=== PATIENT | female | born 1985 | race Native Hawaiian/Other Pacific Islander ===

== ENCOUNTER 2016-11-04 16:05 | Observation (INO) | payer BC, MEDICAID ==
[~2016-11-04] VITALS: Ht 160 cm; Wt 90.3 kg
[2016-11-04 17:00] VITALS: BP 118/70
== END 2016-11-04 18:10 | disposition home or self-care (01) ==
LOC: MLD 16:05
PROVIDERS: ADMIT Obstetrics & Gynecology; ATTEND Obstetrics & Gynecology
DX: O26.892 Other specified pregnancy related conditions, second trimester (principal); R10.9 Unspecified abdominal pain; Z3A.21 21 weeks gestation of pregnancy
CPT/HCPCS: 76805; G0378; Q0092

== ENCOUNTER 2016-11-29 07:57 | Outpatient (CLI) | payer BC, MEDICAID ==
[2016-11-29 08:41] LABS: BASOPHILS % (AUTO) 0.3 % (0.0-2.0); EOSINOPHILS # (AUTO) 0.4 K/uL (0-0.4); EOSINOPHILS % (AUTO) 3.5 % (0.0-4.0); HEMATOCRIT 35.3 % (36-48); HEMOGLOBIN 11.4 g/dL (12.0-16.0); LYMPHOCYTES # (AUTO) 1.9 K/uL (2.5-16.5); LYMPHOCYTES % (AUTO) 17.6 % (20.5-51.1); MEAN CORPUSCULAR HEMOGLOBIN 27 pg (27-31); MEAN CORPUSCULAR HGB CONC 32 g/dL (33-37); MEAN CORPUSCULAR VOLUME 84 fL (80-94); MONOCYTES # (AUTO) 0.7 K/uL (0.8-1.0); MONOCYTES % (AUTO) 6.1 % (1.7-9.3); NEUTROPHILS # (AUTO) 7.9 K/uL (1.8-7.7); NEUTROPHILS % (AUTO) 72.5 % (42.2-75.2); PLATELET COUNT (AUTO) 273 K/uL (140-450); RED BLOOD CELL COUNT(AUTO) 4.23 MIL/uL (4.20-5.40); RED CELL DISTRIBUTION WIDTH 12.9 % (11.6-13.7); WHITE BLOOD COUNT (AUTO) 10.9 K/uL (4.8-10.8)
[2016-11-29 09:27] LABS: GLUCOSE FASTING 99 mg/dL (83-110)
[2016-11-29 11:48] LABS: GLUCOSE,FASTING GESTATIONAL 99 mg/dL (70-110)
== END 2016-11-29 20:43 | disposition home or self-care (01) ==
LOC: MLB 07:57
PROVIDERS: ATTEND Obstetrics & Gynecology
DX: Z33.1 Pregnant state, incidental (principal)
CPT/HCPCS: 36415; 82947; 82951; 85025

== ENCOUNTER 2017-01-04 21:04 | Inpatient (IN) | payer BC, MEDICAID ==
[~2017-01-04] VITALS: Ht 160 cm; Wt 93.6 kg
[2017-01-04 18:59] VITALS: BP 119/81
[2017-01-04] MEDS: TERBUTALINE 1 MG/ML VIAL SUBQ SCH ×2 (19:45→20:25)
[2017-01-04 20:22] LABS: BASOPHILS # (AUTO) 0.2 K/uL (0.00-0.22); BASOPHILS % (AUTO) 1.5 % (0.0-2.0); EOSINOPHILS # (AUTO) 0.4 K/uL (0-0.4); EOSINOPHILS % (AUTO) 2.9 % (0.0-4.0); HEMATOCRIT 35.9 % (36-48); HEMOGLOBIN 11.9 g/dL (12.0-16.0); LYMPHOCYTES # (AUTO) 2.5 K/uL (2.5-16.5); LYMPHOCYTES % (AUTO) 19.6 % (20.5-51.1); MEAN CORPUSCULAR HEMOGLOBIN 27 pg (27-31); MEAN CORPUSCULAR HGB CONC 33 g/dL (33-37); MEAN CORPUSCULAR VOLUME 82 fL (80-94); MONOCYTES # (AUTO) 0.9 K/uL (0.8-1.0); MONOCYTES % (AUTO) 6.9 % (1.7-9.3); NEUTROPHILS # (AUTO) 8.8 K/uL (1.8-7.7); NEUTROPHILS % (AUTO) 69.1 % (42.2-75.2); PLATELET COUNT (AUTO) 260 K/uL (140-450); RED BLOOD CELL COUNT(AUTO) 4.39 MIL/uL (4.20-5.40); RED CELL DISTRIBUTION WIDTH 13.2 % (11.6-13.7); WHITE BLOOD COUNT (AUTO) 12.8 K/uL (4.8-10.8)
[2017-01-04 20:37] LABS: ALBUMIN 2.9 g/dL (3.4-5.0); ANION GAP 14.7 (8-16); CARBON DIOXIDE 21.1 mmol/L (21-32); CREATININE 0.6 mg/dL (0.6-1.3); TOTAL BILIRUBIN 0.2 mg/dL (0.0-1.0)
[2017-01-04 20:38] LABS: POTASSIUM 2.8 mmol/L (3.5-5.1)
[~2017-01-04 21:04] MED LIST: NITR100C7 PO; ONDANSETRON 4 MG/2 ML VIAL IVP PRN; ONDANSETRON 4 MG/2 ML VIAL ONE; PREN-380 PO; TERBUTALINE 1 MG/ML VIAL SUBQ ONE
--- NOTE | 2017-01-04 21:04 | NUR ---
2100- PT TAKEN TO BED 7
--- NOTE | 2017-01-04 21:05 | NUR ---
31Y F BIB FAMILY FROM L&D AFTER PT HAS BEEN CLEARED. PT STATES SHE HAS BEEN HAVING N/V NO DIARRHEA AND DIZZINESS WITH CP OCCURRED WHILE AT L&D TODAY. PT STATES CP IS NON RADIATING SUBSTERNAL FEELS LIKE PRESSURE. EKG HAS BEEN DONE. L&D ESTABLISHED IV 20G TO LEFT HAND AND DELIVERED 1L NACL 0.9 BOLUS WITH IVP ZOFRAN 4MG.
--- NOTE | 2017-01-04 21:05 | NUR ---
CRITICAL LAB K 2.8. ENDORSED FROM L&D NURSE. ER MD DR CHENEY AWARE
[2017-01-04 21:09] VITALS: BP 116/67
--- NOTE | 2017-01-04 21:18 | NUR ---
Dr. Borjas evaluating patient at bedside.
[2017-01-04] MEDS ORDERED: POTASSIUM CHLORIDE 20% 40 MEQ/15 ML UDC PO ONE (21:25)
--- NOTE | 2017-01-04 21:47 | NUR ---
Ultrasound at bedside.
[2017-01-04 21:59] LABS: PROTHROMBIN TIME 9.5 secs (10.8-13.4)
[2017-01-04] MEDS ORDERED: HYDROcodone/APAP 5/325 MG 1 TAB TAB PO PRN (23:30)
--- NOTE | 2017-01-04 23:37 | NUR ---
Patient will be admitted to care of DR ANDREWS. Admited to TELE 111B. Will go to room 111B. Belongings list completed. Report to STEVENSON JORDAN .
--- NOTE | 2017-01-04 23:53 | NUR ---
RECEIVED FROM ER PER DIAZ PT. AWAKE AND ALERT ACCOMPANIED BY SPOUSE. NO COMPLAINTS OF ANY PAIN AT THIS TIME. CALL LIGHT WITH IN REACH AND CARE PLANS FOR THE NIGHT DISCUSSED WITH THEM. ORIENTED TO CALL LIGHT USE, AND SURROUNDINGS. SKIN INTACT. OBESE FEMALE PT. a/o x 4. LH#20 IVF SITE INTACT AND NO INFILTRATION . AFEBRILE. TELEMETRY MONITORING. DX. OF CHEST PAIN . COMPLAINED OF SOB AND CHEST PRESSURE PRIOR ADMISSION TO ER.
[2017-01-05 00:15] VITALS: BP 118/75
--- NOTE | 2017-01-05 02:00 | NUR ---
PT. SLEEPING AT THIS TIME. TELEMETRY MONITORING. SPOUSE AT BEDSIDE WATCHING OVER HER . NO COMPLAINTS DONE.
[2017-01-05] MEDS: LACTATED RINGERS 1,000 ML IV SCH ×3 (03:05→19:24)
[2017-01-05 04:00] VITALS: BP 98/58
--- NOTE | 2017-01-05 04:14 | NUR ---
PT. AWAKE AT THIS TIME. SPOUSE ASSISTED PT. TO RESTROOM INSIDE ROOM. NO UNTOWARD INCIDENT. BILATERAL SEQUENTIALS IN PLACE. CALL LIGHT WITH IN REACH. TELEMETRY MONITORING. IVF SITE TO LEFT HAND INTACT AND NO INFILTRATION.
[2017-01-05 06:16] LABS: BASOPHILS # (AUTO) 0.1 K/uL (0.00-0.22); BASOPHILS % (AUTO) 0.5 % (0.0-2.0); EOSINOPHILS # (AUTO) 0.2 K/uL (0-0.4); EOSINOPHILS % (AUTO) 1.5 % (0.0-4.0); HEMATOCRIT 32.5 % (36-48); HEMOGLOBIN 10.5 g/dL (12.0-16.0); LYMPHOCYTES # (AUTO) 1.8 K/uL (2.5-16.5); MEAN CORPUSCULAR HEMOGLOBIN 26 pg (27-31); MEAN CORPUSCULAR HGB CONC 32 g/dL (33-37); MEAN CORPUSCULAR VOLUME 82 fL (80-94); MONOCYTES # (AUTO) 0.8 K/uL (0.8-1.0); MONOCYTES % (AUTO) 6.2 % (1.7-9.3); NEUTROPHILS % (AUTO) 77.8 % (42.2-75.2); PLATELET COUNT (AUTO) 250 K/uL (140-450); RED BLOOD CELL COUNT(AUTO) 3.96 MIL/uL (4.20-5.40); RED CELL DISTRIBUTION WIDTH 13.1 % (11.6-13.7); WHITE BLOOD COUNT (AUTO) 12.9 K/uL (4.8-10.8)
--- NOTE | 2017-01-05 07:02 | NUR ---
PT. AWAKE AND EATING JELLO. NO COMPLAINTS DONE. TELEMETRY MONITORING. NO NAUSEA OR VOMITING THIS SHIFT.
--- NOTE | 2017-01-05 07:25 | NUR ---
RECEIVED REPORT FROM DESIGNATED BROKER NURSE, PT IS SLEEPING IN BED BUT EASILY AWAKEN, PT IS A/OX4, AMBULATORY, IV IS ON THE LEFT HAND, PATENT, INTACT, FLUSHING WELL, PATIENT IS 30 WEEKS , SKIN IS INTACT, NO S/S OF RESPIRATORY DISTRESS OR DISCOMFORT NOTED, DISCUSSED PLAN OF CARE WITH PT, PT VERBALIZED UNDERSTANDING, IS AT PATIENT'S BEDSIDE, SAFETY/FALL PRECAUTIONS ARE IN PLACE, CALL LIGHT IS WITHIN REACH, WILL CONTINUE TO MONITOR.
[2017-01-05 08:00] VITALS: BP 101/61
--- NOTE | 2017-01-05 08:25 | NUR ---
LABOR AND DELIVERY NURSE AT PT BEDSIDE, CHECKING HEART RATE, FHR IS AT 144.
[2017-01-05] MEDS ORDERED: NON-FORMULARY ITEM (Prenatal Vit/Iron Fumarate/FA (Prenatal Tablet) 1 TAB) PO SCH (09:00)
[2017-01-05] MEDS: MULTIVIT/MIN/CA/FE/FA 1 TAB PO SCH (09:00)
--- NOTE | 2017-01-05 09:09 | NUR ---
PATIENT REFUSED TO TAKE PRE BONG VITAMIN AT THIS TIME, PT STATED SHE WILL VOMIT IF SHE TAKES THE PILL. PT DOES NOT WANT THE ZOFRAN AT THIS TIME, SHE STATED THAT MEDICATION GAVE HER SHORTNESS OF BREATH AND PRESSURE IN HER CHEST.
[2017-01-05 10:17] LABS: ANION GAP 13.2 (8-16); CARBON DIOXIDE 20.4 mmol/L (21-32); CREATININE 0.5 mg/dL (0.6-1.3); POTASSIUM 3.6 mmol/L (3.5-5.1)
--- NOTE | 2017-01-05 10:27 | NUR ---
RECEIVED PHONE CALL FROM DR. MALIK, PER DR. MALIK HE WILL BE IN TO SEE PT TOMORROW. ORDER FOLIC ACID, VIT B12 AND IRON.
--- NOTE | 2017-01-05 12:51 | NUR ---
PT REFUSED TO HAVE CHEST XRAY STUDY DONE.
[2017-01-05] MEDS ORDERED: ONDANSETRON 4 MG/2 ML VIAL IVP PRN (13:00)
--- NOTE | 2017-01-05 14:45 | NUR ---
PATIENT IS RESTING IN BED, NO S/S OF RESPIRATORY DISTRESS OR DISCOMFORT NOTED, CALL LIGHT WITHIN REACH.
[2017-01-05 15:02] VITALS: BP 95/49
--- NOTE | 2017-01-05 17:30 | NUR ---
PATIENT REFUSED CT-SCAN OF THE HEAD D/T 30 WEEK .
[2017-01-05] MEDS: cefTRIAXone 2,000 MG in DEXTROSE 5% 100 ML IV SCH (17:46)
--- NOTE | 2017-01-05 18:45 | NUR ---
PATIENT TAKING A SHOWER AT THIS TIME.
--- NOTE | 2017-01-05 19:25 | NUR ---
ENDORSED PT TO HOLLOCK MAKER NURSE FOR CONTINUITY OF CARE, PT STABLE AT THIS TIME.
--- NOTE | 2017-01-05 19:30 | NUR ---
RECEIVED REPORTS FROM DAY RN, PATIENT RESTING IN BED, AWAKE ALERT ORIENTED X4, FAMILY AT BEDSIDE. NO S/S OF ACUTE DISTRESS NOTED, RESPIRATION EVEN AND UNLABORED, IV INTACT AND PATENT, INFUSING LR AT 125ML/HR. PLAN OF CARE DISCUSSED, VERBALIZED UNDERSTANDING, CALL LIGHT WITHIN REACH, SAFETY MEASURE ENSURED, WILL CONTINUE TO MONITOR.
[2017-01-05 20:00] VITALS: BP 101/62
--- NOTE | 2017-01-05 20:28 | NUR ---
L&D NURSE CAME AND CHECKED THE PATIENT, REPORTED HEART RATE 142.
--- NOTE | 2017-01-05 22:20 | NUR ---
PATIENT RESTING IN BED, FAMILY MEMBERS AT BEDSIDE. NO S/S OF ACUTE DISTRESS NOTED, RESPIRATION EVEN AND UNLABORED, CALL LIGHT WITHIN REACH, SAFETY MEASURE ENSURED, WILL CONTINUE TO MONITOR.
[2017-01-06] VITALS: BP 99/49
--- NOTE | 2017-01-06 | NUR ---
STARTED A NEW BAG OF 1L LACTATED RINGER, PATIENT TOLERATED WELL. NO S/S OF ACUTE DISTRESS NOTED, RESPIRATION EVEN AND UNLABORED, CALL LIGHT WITHIN REACH, SAFETY MEASURE ENSURED, WILL CONTINUE TO MONITOR.
--- NOTE | 2017-01-06 02:39 | NUR ---
PATIENT ASLEEP IN BED, NO S/S OF ACUTE DISTRESS NOTED, RESPIRATION EVEN AND UNLABORED, WILL CONTINUE TO MONITOR.
[2017-01-06 04:00] VITALS: BP 100/62
--- NOTE | 2017-01-06 04:34 | NUR ---
PATIENT IS SLEEPING AT THIS TIME, NO S/S OF ACUTE DISTRESS NOTED, RESPIRATION EVEN AND UNLABORED, CALL LIGHT WITHIN REACH, SAFETY MEASURE ENSURED, WILL CONTINUE TO MONITOR.
[2017-01-06 05:56] LABS: BASOPHILS # (AUTO) 0.1 K/uL (0.00-0.22); BASOPHILS % (AUTO) 1.6 % (0.0-2.0); EOSINOPHILS # (AUTO) 0.4 K/uL (0-0.4); EOSINOPHILS % (AUTO) 3.9 % (0.0-4.0); HEMATOCRIT 31.4 % (36-48); HEMOGLOBIN 10.4 g/dL (12.0-16.0); LYMPHOCYTES # (AUTO) 2.3 K/uL (2.5-16.5); MEAN CORPUSCULAR HEMOGLOBIN 27 pg (27-31); MEAN CORPUSCULAR HGB CONC 33 g/dL (33-37); MEAN CORPUSCULAR VOLUME 82 fL (80-94); MONOCYTES # (AUTO) 0.5 K/uL (0.8-1.0); MONOCYTES % (AUTO) 5.6 % (1.7-9.3); NEUTROPHILS # (AUTO) 5.8 K/uL (1.8-7.7); NEUTROPHILS % (AUTO) 63.9 % (42.2-75.2); PLATELET COUNT (AUTO) 274 K/uL (140-450); RED BLOOD CELL COUNT(AUTO) 3.85 MIL/uL (4.20-5.40); RED CELL DISTRIBUTION WIDTH 13.3 % (11.6-13.7); WHITE BLOOD COUNT (AUTO) 9.1 K/uL (4.8-10.8)
--- NOTE | 2017-01-06 06:15 | NUR ---
PATIENT IS SLEEPING AT THIS TIME. RESPIRATION EVEN AND UNLABORED, NO S/S OF ACUTE DISTRESS NOTED, CALL LIGHT WITHIN REACH, SAFETY MEASURE ENSURED, WILL CONTINUE TO MONITOR.
[2017-01-06 06:23] LABS: ANION GAP 11.7 (8-16); CARBON DIOXIDE 22.7 mmol/L (21-32); CREATININE 0.4 mg/dL (0.6-1.3); POTASSIUM 3.4 mmol/L (3.5-5.1)
[2017-01-06] MEDS: ACETAMINOPHEN 325 MG TAB PO PRN ×2 (06:36→17:04)
--- NOTE | 2017-01-06 06:41 | NUR ---
PATIENT REPORTED LOWER ABDOMEN PRESSURE LIKE PAIN 07/05, AND STATED," WHEN THE PERSON WAS DRAWING BLOOD, I STARTED TO FEEL DIZZY." VITAL SIGNS TAKEN, READ T 98.3, BP 114/70, HR 89, RR 19, O2 SAT 96%, PAIN MEDICATION GIVEN ORDERED. WILL CONTINUE TO MONITOR.
--- NOTE | 2017-01-06 07:26 | NUR ---
ENDORSED PLAN OF CARE TO DAY RN, PATIENT RESTING IN BED, NO S/S OF ACUTE DISTRESS NOTED, RESPIRATION EVEN AND UNLABORED.
--- NOTE | 2017-01-06 07:30 | NUR ---
RECEIVED PATIENT AT BEDSIDE FROM NIGHT NURSE. PATIENT IS AAOX4 AND SHOWS NO S/S OF ACUTE DISTRESS ON ROOM AIR. PATIENT SKIN IS INTACT. PATIENT IV NOTED ON THE L H WITH IVF'S INFUSING WELL. ON TELE MONITOR. PATIENT DENIES PAIN. PATIENT WAS EXPLAINED POC FOR TODAY AND VERBALIZED UNDERSTANDING. PATIENT IS AWARE TO USE CALL LIGHT WHEN ASSISTANCE IS NEEDED. THE BED IS IN LOW POSITION AND CALL LIGHT WITHIN REACH. WILL CONTINUE TO MONITOR.
[2017-01-06 08:00] VITALS: BP 132/77
--- NOTE | 2017-01-06 08:15 | NUR ---
PAGED DR ANDREWS REGARDING PATIENT'S POTASSIUM OF 3.4. WILL AWAIT CALL BACK.
--- NOTE | 2017-01-06 09:12 | NUR ---
PATIENT HAS BEEN SCREENED AND CATEGORIZED HIGH NUTRITION RISK. PATIENT WILL BE SEEN WITHIN 1-2 DAYS OF ADMISSION. 01/05/17-01/06/[address]
[2017-01-06 09:34] LABS: CREATINE KINASE MB 0.1 ng/mL (0-3.6)
[2017-01-06] MEDS: FOLIC ACID 1 MG TAB PO SCH (09:50)
[2017-01-06] MEDS: FERROUS GLUCONATE 324 MG TAB PO SCH ×2 (09:50→17:04)
--- NOTE | 2017-01-06 09:50 | NUR ---
ADMINISTERED SCHEDULED MEDICATIONS. PATIENT C/O NAUSEA. ADMINISTERED ZOFRAN 4 MG IVP. PATIENT DENIES PAIN. PATIENT HAS FAMILY AT BEDSIDE. WILL CONTINUE TO MONITOR.
[2017-01-06] MEDS: MULTIVIT/MIN/CA/FE/FA 1 TAB PO SCH (09:51)
[2017-01-06] MEDS: CYANOCOBALAMIN 100 MCG TAB PO SCH (09:51)
[2017-01-06] MEDS: ONDANSETRON 4 MG/2 ML VIAL IVP PRN (09:52)
[2017-01-06] MEDS: LACTATED RINGERS 1,000 ML IV SCH ×3 (09:58→21:35)
--- NOTE | 2017-01-06 10:30 | NUR ---
PAGED DR. ANDREWS REGARDING PATIENT POTASSIUM OF 3.4. WILL AWAIT CALL BACK.
[2017-01-06 12:00] VITALS: BP 103/67
--- NOTE | 2017-01-06 12:20 | NUR ---
PATIENT HAS FAMILY AT BEDSIDE AND SHOWS NO S/S OF ACUTE DISTRESS ON ROOM AIR. PATIENT DENIES PAIN AND N/V. PATIENT IS SITTING ON CHAIR EATING LUNCH HOWEVER, WOULD LIKE ANOTHER LUNCH TRAY BC SHE DOES NOT LIKE THE FOOD. WILL CALL [facility].
--- NOTE | 2017-01-06 13:00 | NUR ---
[facility] CAME AND GAVE PATIENT CHICKEN [employer] SANDWICH. PATIENT SHOWS NO S/S OF ACUTE DISTRESS ON ROOM AIR. FAMILY AT BEDSIDE.
[2017-01-06] MEDS ORDERED: POTASSIUM CHLORIDE 10 MEQ TABER PO SCH (13:05)
--- NOTE | 2017-01-06 13:40 | NUR ---
CM NOTE INITIAL REVIEW FAXED TO NILDA LUNA [phone] , REF# [id number]
--- NOTE | 2017-01-06 13:57 | NUR ---
RECEIVED FAX FROM [facility] [employer] STATING THE NURSE ASSIGNED IS STELLA MARTINEZ PH [phone] X [phone], FAX [phone]. INITIAL REVIEW FAXED TO [facility] FAX [phone], STELLA MARTINEZ PH [phone] X [phone]
--- NOTE | 2017-01-06 14:50 | NUR ---
PATIENT WAS SEEN BY DR ANDREWS. PATIENT AWARE SHE WILL STAY TONIGHT AND HAVE AM LABS. PATIENT IS NOW RESTING AND SHOWS NO S/S OF ACUTE DISTRESS ON ROOM AIR. THE BED IS LOWERED WITH CALL LIGHT WITHIN REACH.
--- NOTE | 2017-01-06 15:07 | NUR ---
01/06/17 RD INITIAL ASSESSMENT COMPLETED PLEASE REFER TO NUTRITION ASSESSMENT UNDER CARE ACTIVITY FOR ESTIMATED NUTRITIONAL NEEDS. 1. CONTINUE CARDIAC DIET 2. BOOST BREEZE TID 3. RD TO FOLLOW UP WITHIN 2-3 DAYS; HIGH RISK VENICE HAMEED RD
--- NOTE | 2017-01-06 15:33 | NUR ---
PATIENT IS SLEEPING IN BED AND DENIES PAIN. THE BED IS LOWERED WITH CALL LIGHT WITHIN REACH.
--- NOTE | 2017-01-06 15:35 | NUR ---
CHART REVIEWED. NO POST ACUTE CARE NEEDS IDENTIFIED.
[2017-01-06 16:00] VITALS: BP 99/57
[2017-01-06] MEDS: cefTRIAXone 2,000 MG in DEXTROSE 5% 100 ML IV SCH (17:03)
--- NOTE | 2017-01-06 17:04 | NUR ---
PATIENT C/O HEADACHE 07/05 ADMINISTERED TYLENOL 650 MG PO. ADMINISTERED SCHEDULED MEDICATIONS WELL. PATIENT BED IS IN LOW POSITION WITH CALL LIGHT WITHIN REACH. WILL CONTINUE TO MONITOR.
--- NOTE | 2017-01-06 18:04 | NUR ---
PATIENT DENIES PAIN OR HEADACHE. PATIENT STATED IV WAS HURTING HER. WILL DISCONTINUE AND PLACE NEW IV.
--- NOTE | 2017-01-06 19:06 | NUR ---
UNABLE TO GET NEW IV. PATIENT REPORT WAS GIVEN AT BEDSIDE. PATIENT ENDORSED TO MARIJA JORDAN. MARIJA RN AWARE OF PATIENT IV NEEDS TO BE CHANGED. PATIENT ENDORSED IN STABLE CONDITION.
--- NOTE | 2017-01-06 19:15 | NUR ---
RECEIVED REPORT FROM DAY RN. PATIENT RESTING IN BED, NO S/S OF ACUTE DISTRESS NOTED, RESPIRATION EVEN AND UNLABORED. IV ON LT HAND IS NOT PATENT, AND WILL START A NEW IV LATER. PLAN OF CARE DISCUSSED, VERBALIZED UNDERSTANDING. CALL LIGHT WITHIN REACH, SAFETY MEASURE ENSURED, WILL CONTINUE TO MONITOR.
[2017-01-06 20:00] VITALS: BP 102/57
--- NOTE | 2017-01-06 20:00 | NUR ---
L&d NURSE CAME AND CHECKED THE PATIENT, HEART RATE 145
--- NOTE | 2017-01-06 20:45 | NUR ---
STARTED NEW IV ON RT FOREARM 20G. PATIENT TOLERATED WELL, NEW IV FLUSHED WITH NS 10ML, PATENT AND INTACT. IV ON THE LT HAND 20G TAKEN OUT, TIP INTACT, NO ACTIVE BLEEDING NOTED.
--- NOTE | 2017-01-06 23:40 | NUR ---
PATIENT ASLEEP IN BED, NO S/S OF ACUTE DISTRESS NOTED, RESPIRATION EVEN AND UNLABORED, CALL LIGHT WITHIN REACH, SAFETY MEASURE ENSURED, WILL CONTINUE TO MONITOR.
[2017-01-07] VITALS: BP 99/61
[2017-01-07] MEDS: LACTATED RINGERS 1,000 ML IV SCH (03:05)
[2017-01-07 03:53] VITALS: BP 100/58
--- NOTE | 2017-01-07 06:34 | NUR ---
PATIENT IS SLEEPING AT THIS TIME, NO S/S OF ACUTE DISTRESS NOTED, RESPIRATION EVEN AND UNLABORED, CALL LIGHT WITHIN REACH, SAFETY MEASURE ENSURED, WILL CONTINUE TO MONITOR
[2017-01-07 06:57] LABS: BASOPHILS # (AUTO) 0.1 K/uL (0.00-0.22); EOSINOPHILS # (AUTO) 0.3 K/uL (0-0.4); EOSINOPHILS % (AUTO) 3.2 % (0.0-4.0); HEMATOCRIT 32.2 % (36-48); HEMOGLOBIN 10.7 g/dL (12.0-16.0); LYMPHOCYTES # (AUTO) 2.2 K/uL (2.5-16.5); LYMPHOCYTES % (AUTO) 24.3 % (20.5-51.1); MEAN CORPUSCULAR HEMOGLOBIN 27 pg (27-31); MEAN CORPUSCULAR HGB CONC 33 g/dL (33-37); MEAN CORPUSCULAR VOLUME 82 fL (80-94); MONOCYTES # (AUTO) 0.8 K/uL (0.8-1.0); NEUTROPHILS # (AUTO) 5.6 K/uL (1.8-7.7); NEUTROPHILS % (AUTO) 62.5 % (42.2-75.2); PLATELET COUNT (AUTO) 258 K/uL (140-450); RED BLOOD CELL COUNT(AUTO) 3.92 MIL/uL (4.20-5.40); RED CELL DISTRIBUTION WIDTH 13.3 % (11.6-13.7)
[2017-01-07 06:59] LABS: ANION GAP 11.2 (8-16); CARBON DIOXIDE 22.5 mmol/L (21-32); CREATININE 0.4 mg/dL (0.6-1.3); POTASSIUM 3.7 mmol/L (3.5-5.1)
--- NOTE | 2017-01-07 07:30 | NUR ---
ENDORSED PLAN OF CARE TO DAY RN, PATIENT RESTING IN BED, NO S/S OF ACUTE DISTRESS NOTED, PATIENT IS IN STABLE CONDITION.
--- NOTE | 2017-01-07 07:32 | NUR ---
RECEIVED PATIENT AT BEDSIDE FROM NIGHT NURSE. PATIENT IS AAOX4 AND SHOWS NO S/S OF ACUTE DISTRESS ON ROOM AIR. PATIENT SKIN IS INTACT. PATIENT IV NOTED ON THE R FA WITH IVF'S INFUSING WELL. ON TELE MONITOR. PATIENT DENIES PAIN. PATIENT WAS EXPLAINED POC FOR TODAY AND VERBALIZED UNDERSTANDING. PATIENT IS AWARE TO USE CALL LIGHT WHEN ASSISTANCE IS NEEDED. THE BED IS IN LOW POSITION AND CALL LIGHT WITHIN REACH. WILL CONTINUE TO MONITOR.
[2017-01-07 08:00] VITALS: BP 107/62
[2017-01-07] MEDS: FERROUS GLUCONATE 324 MG TAB PO SCH (08:38)
[2017-01-07] MEDS: ONDANSETRON 4 MG/2 ML VIAL IVP PRN (08:38)
[2017-01-07] MEDS: MULTIVIT/MIN/CA/FE/FA 1 TAB PO SCH (08:38)
[2017-01-07] MEDS: CYANOCOBALAMIN 100 MCG TAB PO SCH (08:38)
[2017-01-07] MEDS: FOLIC ACID 1 MG TAB PO SCH (08:38)
--- NOTE | 2017-01-07 08:43 | NUR ---
ADMINISTERED SCHEDULED MEDICATIONS. PATIENT C/O NAUSEA AFTER RECEIVING BLOOD DRAWN. GAVE ZOFRAN 4 MG IVP. PATIENT'S NEEDS MET AT THIS TIME. THE BED IS LOWERED WITH CALL LIGHT WITHIN REACH. AT BEDSIDE. WILL CONTINUE TO MONITOR.
--- NOTE | 2017-01-07 09:43 | NUR ---
CM NOTE CONCURRENT REVIEW FAXED TO [facility], NURSE STELLA MARTINEZ FAX [phone], PH [phone] X [phone], REF# [id number]
--- NOTE | 2017-01-07 10:49 | NUR ---
PATIENT SHOWS NO S/S OF ACUTE DISTRESS. PATIENT DENIES PAIN AND SOB. PATIENT'S AT BEDSIDE. THE BED IS LOWERED WITH CALL LIGHT WITHIN REACH.
[2017-01-07 12:00] VITALS: BP 104/64
--- NOTE | 2017-01-07 12:30 | NUR ---
PATIENT SHOWS NO S/S OF ACUTE DISTRESS ON ROOM AIR. PATIENT DENIES PAIN, DIZZINESS ANS SOB. WILL CONTINUE TO MONITOR.
[2017-01-07] MEDS ORDERED: VITB12 PO (13:42)
[2017-01-07] MEDS ORDERED: FERR324T11 PO (13:42)
[2017-01-07] MEDS ORDERED: PROM25TA27 PO (13:45)
[2017-01-07] MEDS ORDERED: MECL-272 PO (13:45)
--- NOTE | 2017-01-07 14:42 | NUR ---
PATIENT HAS BEEN DISCHARGED. DISCHARGE INSTRUCTIONS AND PRESCRIPTIONS GIVEN. ALL PAPERWORK SIGNED, ALL QUESTIONS ANSWERED AND PATIENT VERBALIZED UNDERSTANDING. ALL BELONGINGS AND PRESCRIPTIONS IN PATIENTS POSSESSION. IV DISCONTINUED WITH CANNULA INTACT. WRISTBANDS AND AND TELE MONITOR REMOVED. PATIENT LEFT UNIT IN STABLE CONDITION IN WHEELCHAIR WITH FAMILY PRESENT AT SIDE.
--- NOTE | 2017-01-08 11:50 | NUR ---
CM NOTE DISCHARGE PLAN/MEMBER INSTRUCTIONS FAXED TO [facility] LUNA / FAX# [phone], ATTN: STELLA #[phone] [id number]
== END 2017-01-07 14:42 | disposition home or self-care (01) | DRG 781 ==
LOC: MED 21:04 → EDSTATUS 21:04 → MTU 23:40
PROVIDERS: ADMIT Preventive Medicine Preventive Medicine/Occupational Environmental Medicine; ATTEND Preventive Medicine Preventive Medicine/Occupational Environmental Medicine
DX: O99.613 Diseases of the digestive system complicating pregnancy, third trimester (principal); E88.09 Other disorders of plasma-protein metabolism, not elsewhere classified; O23.43 Unspecified infection of urinary tract in pregnancy, third trimester; E87.5 Hyperkalemia; O26.893 Other specified pregnancy related conditions, third trimester; O99.013 Anemia complicating pregnancy, third trimester; D50.9 Iron deficiency anemia, unspecified; D72.829 Elevated white blood cell count, unspecified; K21.0 Gastro-esophageal reflux disease with esophagitis; O99.283 Endocrine, nutritional and metabolic diseases complicating pregnancy, third trimester; E87.6 Hypokalemia; R11.2 Nausea with vomiting, unspecified; R42 Dizziness and giddiness; R00.0 Tachycardia, unspecified; R73.9 Hyperglycemia, unspecified; Z86.32 Personal history of gestational diabetes; Z82.49 Family history of ischemic heart disease and other diseases of the circulatory system; Z3A.30 30 weeks gestation of pregnancy
CPT/HCPCS: 36415; 76805; 80048; 80053; 82550; 82553; 83880; 84484; 85025; 85379; 85610; 85651; 85730; 86140; 87040; 87081; 87086; 93005; 93880; 93970; 99285; J0696; J2405; J3105; J7060; J7120; Q0092